=== PATIENT | female | born 1960 | race Caucasian/White ===

== ENCOUNTER → 2016-09-14 | Outpatient (CLI) | payer BC ==
--- NOTE | 2016-09-15 10:56 | MM ---
Reason for exam: screening (asymptomatic). Last mammogram was performed 1 year and 5 months ago. History: Patient has history of other cancer at age 27. Family history of premenopausal breast cancer in mother at age 31. Took hormonal contraceptives for 10 years beginning at age 20. Physical Findings: A clinical breast exam by your physician is recommended on an annual basis and results should be correlated with mammographic findings. MG Screening Mammo w CAD Bilateral CC and MLO view(s) were taken. Prior study comparison: April 25, 2015, bilateral MG screening mammo w CAD. March 14, 2014, bilateral MG screening mammo w CAD. There are scattered fibroglandular densities. Asymmetric breast tissue in right breast MLO posteriorly, 8cm from nipple at pectoralis level, 8mm with calcifications. ASSESSMENT: Incomplete: need additional imaging evaluation, BI-RAD 0 RECOMMENDATION: Special view mammogram of the right breast. If lesion persists on supplemental views, image directed ultrasound is recommended. [facility] will attempt to contact patient to return for supplemental views and ultrasound if indicated.
== END | disposition home or self-care (01) ==
LOC: RADMAMWWP 11:15
PROVIDERS: ATTEND Obstetrics & Gynecology
DX: Z12.31 Encounter for screening mammogram for malignant neoplasm of breast (principal); R92.2 Inconclusive mammogram; Z80.3 Family history of malignant neoplasm of breast

== ENCOUNTER → 2016-09-28 | Outpatient (CLI) | payer BC ==
--- NOTE | 2016-09-28 13:12 | MM ---
Reason for exam: additional evaluation requested from abnormal screening. Last mammogram was performed less than 1 month ago. History: Patient is postmenopausal and has history of other cancer at age 27. Family history of premenopausal breast cancer in mother at age 31. Took hormonal contraceptives for 10 years beginning at age 20. Taking estrogen beginning at age 56. Physical Findings: Nurse did not find any significant physical abnormalities on exam. MG Work Up Mamm w CAD RT ML, XCCL, spot compression MLO, and spot compression XCCL view(s) were taken of the right breast. Prior study comparison: September 14, 2016, bilateral MG screening mammo w CAD. April 25, 2015, bilateral MG screening mammo w CAD. Finding: There is a typically benign equal density (isodense), circumscribed oval mass in the upper outer quadrant, axillary tail position of the right breast with punctate calcifications. This is persistent on compression. These results were verbally communicated with the patient and result sheet given to the patient on 09/28/16. ASSESSMENT: Incomplete: need additional imaging evaluation, BI-RAD 0 RECOMMENDATION: Ultrasound of the right breast.
--- NOTE | 2016-09-28 13:14 | USB ---
Reason for exam: additional evaluation requested from abnormal screening. History: Patient is postmenopausal and has history of other cancer at age 27. Family history of premenopausal breast cancer in mother at age 31. Took hormonal contraceptives for 10 years beginning at age 20. Taking estrogen beginning at age 56. US Breast Workup Limited RT Right breast ultrasound demonstrates a 0.6 x 0.4 x 0.2cm oval, cystic lesion with calcification at 10 o'clock. These results were verbally communicated with the patient and result sheet given to the patient on 09/28/16. ASSESSMENT: Suspicious, BI-RAD 4 RECOMMENDATION: Surgical consultation and ultrasound core biopsy of the right breast. Called Dr. Perez with mammographic findings and has scheduled an appointment for the patient for 10/05/16 at 1:[address] Perez. PRELIMINARY REPORT CALLED AND FAXED TO DR. PEREZ ON 09/28/16 AT 300/TMP.
== END | disposition home or self-care (01) ==
LOC: RADMAMWWP 10:55
PROVIDERS: ATTEND Obstetrics & Gynecology
DX: R92.8 Other abnormal and inconclusive findings on diagnostic imaging of breast (principal)
CPT/HCPCS: 76642; G0206

== ENCOUNTER → 2016-10-19 | Day surgery (SDC) | payer BC ==
[~2016-10-19] MED LIST: BACITRACIN OINT 1 EACH PACKET TOPICAL ONE; LIDOCAINE 1% INJ 10MG/ML (20 ML MDV) ONE; LIDOCAINE 1%-EPI 1:100,000 20 ML VIAL ONE; SODIUM BICARB 4% 5 ML VIAL (0.48 MEQ/ML) ONE
--- NOTE | 2016-10-19 13:52 | USB ---
EXAMINATION TYPE: US biopsy breast VAD RT DATE OF EXAM: 10/19/2016 12:45 PM CLINICAL HISTORY: R92.8 Abnormal mammo. TECHNIQUE: Ultrasound guided core biopsy of right breast. COMPARISON: Previous ultrasound dated 09/28/2016. FINDINGS: The procedure of ultrasound guided core biopsy was explained to the patient. Benefits, alternatives, and risks were discussed. An informed consent was then obtained. The patient was placed in supine positioning for imaging and for the procedure. The overlying skin was prepped and draped in usual sterile fashion. Lidocaine buffered with bicarbonate was used as anesthetic into the skin and subcutaneous tissue up to area of concern in the right breast. A whit was made with surgical scalpel. Under ultrasound guidance, a 12-gauge vacuum assisted biopsy gun device was used to obtain 8 core samples. The lesion dissipated. Following this, a biopsy clip was left in lesion. The patient tolerated the procedure well without any immediate complication. The patient was kept in the radiology department for short stay after the procedure and then discharged home in stable condition. A two-view mammogram demonstrates the clip to be in the correct location and the lesion to have resolved. Residual calcifications were seen. Pathology is pending. IMPRESSION: Successful, uncomplicated ultrasound guided core biopsy of area of concern in the right breast, full pathology results to follow. Pathology Results: Benign BREAST, RIGHT, ULTRASOUND GUIDED CORE BIOPSY: FIBROCYSTIC CHANGE (STROMAL FIBROSIS, CYST FORMATION, ADENOSIS, DUCT HYPERPLASIA AND SCATTERED CALCIFICATIONS). 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 Recommendation Follow up ultrasound of the right breast in 6 months. VAIBHAV
--- NOTE | 2016-10-19 13:53 | MM ---
EXAMINATION TYPE: US biopsy breast VAD RT DATE OF EXAM: 10/19/2016 12:45 PM CLINICAL HISTORY: R92.8 Abnormal mammo. TECHNIQUE: Ultrasound guided core biopsy of right breast. COMPARISON: Previous ultrasound dated 09/28/2016. FINDINGS: The procedure of ultrasound guided core biopsy was explained to the patient. Benefits, alt ernatives, and risks were discussed. An informed consent was then obtained. The patient was placed in supine positioning for imaging and for the procedure. The overlying skin w as prepped and draped in usual sterile fashion. Lidocaine buffered with bicarbonate was used as anes thetic into the skin and subcutaneous tissue up to area of concern in the right breast. A whit was m marcos with surgical scalpel. Under ultrasound guidance, a 12-gauge vacuum assisted biopsy gun device was used to obtain 8 core saran ples. The lesion dissipated. Following this, a biopsy clip was left in lesion. The patient tolerated the procedure well without any immediate complication. The patient was kept in the radiology department for short stay after the procedure and then discharged home in stable condi tion. A two-view mammogram demonstrates the clip to be in the correct location and the lesion to have resol arun. Residual calcifications were seen. Pathology is pending. IMPRESSION: Successful, uncomplicated ultrasound guided core biopsy of area of concern in the right b reast, full pathology results to follow.
== END ==
LOC: RADUSWWP 11:42
PROVIDERS: ATTEND Surgery
DX: N60.11 Diffuse cystic mastopathy of right breast (principal); N60.21 Fibroadenosis of right breast; N60.91 Unspecified benign mammary dysplasia of right breast; R92.1 Mammographic calcification found on diagnostic imaging of breast; R92.8 Other abnormal and inconclusive findings on diagnostic imaging of breast
CPT/HCPCS: 88305; 19083; G0206; A4648; J2001

== ENCOUNTER → 2017-04-26 | Outpatient (CLI) | payer BC ==
--- NOTE | 2017-04-27 07:55 | USB ---
Reason for exam: follow-up at short interval from prior study. History: Patient is postmenopausal and has history of other cancer at age 27. Family history of premenopausal breast cancer in mother at age 31. Benign US biopsy breast VAD RT of the right breast, October 19, 2016. Took hormonal contraceptives for 10 years beginning at age 20. Taking estrogen beginning at age 56. Physical Findings: Nurse did not find any significant physical abnormalities on exam. US Breast RT Right breast ultrasound includes all four quadrants, the retroareolar region and axilla. Finding demonstrates a 0.3 x 0.3 x 0.1cm cystic lesion at 10 o'clock, previously biopsied and a 0.9 x 1.4 x 0.2cm cystic lesion at 4 o'clock. These results were verbally communicated with the patient and result sheet given to the patient on 04/26/17. ASSESSMENT: Probably benign, BI-RAD 3 RECOMMENDATION: Return to routine screening mammogram schedule for both breasts. Back on schedule for September 2017.
== END | disposition home or self-care (01) ==
LOC: RADUSWWP 14:05
PROVIDERS: ATTEND Surgery
DX: R92.8 Other abnormal and inconclusive findings on diagnostic imaging of breast (principal)

== ENCOUNTER → 2017-11-23 | Outpatient (CLI) | payer BC ==
--- NOTE | 2017-11-24 12:00 | MM ---
Reason for exam: screening (asymptomatic). Last mammogram was performed 1 year and 1 month ago. History: Patient is postmenopausal and has history of other cancer at age 27. Family history of premenopausal breast cancer in mother at age 31. Benign US biopsy breast VAD RT of the right breast, October 19, 2016. Took hormonal contraceptives for 10 years beginning at age 20. Taking estrogen beginning at age 56. Physical Findings: A clinical breast exam by your physician is recommended on an annual basis and results should be correlated with mammographic findings. MG Screening Mammo w CAD Bilateral CC and MLO view(s) were taken. XCCL view(s) were taken of the right breast. Prior study comparison: October 19, 2016, right breast MG diagnostic mammo RT wo CAD. September 28, 2016, right breast MG work up mamm w CAD RT. The breast tissue is heterogeneously dense. This may lower the sensitivity of mammography. There is a lower inner quadrant right brast mass smaller than on the exam on 2015. No suspicious abnormality. Right biopsy marker noted. ASSESSMENT: Benign, BI-RAD 2 RECOMMENDATION: Routine screening mammogram of both breasts in 1 year.
== END | disposition home or self-care (01) ==
LOC: RADMAMWWP 11:11
PROVIDERS: ATTEND Obstetrics & Gynecology
DX: Z12.31 Encounter for screening mammogram for malignant neoplasm of breast (principal)
CPT/HCPCS: 77067

== ENCOUNTER → 2019-02-24 | Outpatient (CLI) | payer BC ==
--- NOTE | 2019-02-28 10:06 | MM ---
Reason for exam: screening (asymptomatic). Last mammogram was performed 1 year and 3 months ago. History: Patient is postmenopausal and has history of other cancer at age 27. Family history of premenopausal breast cancer in mother at age 31. Benign US biopsy breast VAD RT of the right breast, October 19, 2016. Took hormonal contraceptives for 10 years beginning at age 20. Took estrogen for 2 months beginning at age 56. Physical Findings: A clinical breast exam by your physician is recommended on an annual basis and results should be correlated with mammographic findings. MG Screening Mammo w CAD Bilateral CC and MLO view(s) were taken. XCCL view(s) were taken of the right breast. Prior study comparison: November 23, 2017, bilateral MG screening mammo w CAD. October 19, 2016, right breast MG diagnostic mammo RT wo CAD. The breast tissue is heterogeneously dense. This may lower the sensitivity of mammography. There is a right lower inner quadrant posterior depth mass that is smaller than prior exams. Benign appearing bilateral calcifications. No suspicious abnormality. Right biopsy marker noted. No significant changes when compared with prior studies. ASSESSMENT: Benign, BI-RAD 2 RECOMMENDATION: Routine screening mammogram of both breasts in 1 year.
== END ==
LOC: RADMAMWWP 11:17
PROVIDERS: ATTEND Obstetrics & Gynecology
DX: Z12.31 Encounter for screening mammogram for malignant neoplasm of breast (principal); Z80.3 Family history of malignant neoplasm of breast
CPT/HCPCS: 77067

== ENCOUNTER → 2020-03-29 | Outpatient (CLI) | payer BC ==
--- NOTE | 2020-04-04 09:14 | MM ---
Reason for exam: clinical finding. Last mammogram was performed 1 year and 1 month ago. History: Patient is postmenopausal and has history of other cancer at age 27. Family history of premenopausal breast cancer in mother at age 31. Benign US biopsy breast VAD RT of the right breast, October 19, 2016. Took hormonal contraceptives for 10 years beginning at age 20. Took estrogen for 2 months beginning at age 56. Physical Findings: Nurse did not find any significant physical abnormalities on exam. MG 3D Diag Mammo W/Cad KELI Bilateral CC and MLO view(s) were taken. Prior study comparison: February 24, 2019, bilateral MG screening mammo w CAD. November 23, 2017, bilateral MG screening mammo w CAD. The breast tissue is heterogeneously dense. This may lower the sensitivity of mammography. Benign appearing bilateral calcifications. Previous mammotome biopsy in the right breast. These results were verbally communicated with the patient and result sheet given to the patient on 03/29/20. ASSESSMENT: Incomplete: need additional imaging evaluation, BI-RAD 0 RECOMMENDATION: Ultrasound of the right breast.
--- NOTE | 2020-04-04 09:18 | USB ---
Reason for exam: additional evaluation requested from abnormal screening. History: Patient is postmenopausal and has history of other cancer at age 27. Family history of premenopausal breast cancer in mother at age 31. Benign US biopsy breast VAD RT of the right breast, October 19, 2016. Took hormonal contraceptives for 10 years beginning at age 20. Took estrogen for 2 months beginning at age 56. US Breast RT Right complete breast ultrasound includes all four quadrants, the retroareolar region and axilla. Finding demonstrates a 0.7 x 0.4 x 0.7cm cystic lesion at 4 o'clock and a 0.4 x 0.3 x 0.5cm cystic cluster at 10 o'clock. Prominent but nonenlarged high right axillary node measuring 1.9 x 1.1 x 0.7cm with slight cortical thickening up to 2.7mm. Corresponds to the palpable site, 3 month follow up recommended. These results were verbally communicated with the patient and result sheet given to the patient on 03/29/20. ASSESSMENT: Probably benign, BI-RAD 3 RECOMMENDATION: Ultrasound of the right breast in 3 months.
== END | disposition home or self-care (01) ==
LOC: RADMAMWWP 13:24
PROVIDERS: ATTEND Obstetrics & Gynecology
DX: N63.31 Unspecified lump in axillary tail of the right breast (principal); Z80.3 Family history of malignant neoplasm of breast
CPT/HCPCS: 77062; 77066

== ENCOUNTER → 2020-06-27 | Outpatient (CLI) | payer BC ==
--- NOTE | 2020-07-02 10:13 | USB ---
Reason for exam: follow-up at short interval from prior study. History: Patient is postmenopausal and has history of other cancer at age 27. Family history of premenopausal breast cancer in mother at age 31. Benign US biopsy breast VAD RT of the right breast, October 19, 2016. Took hormonal contraceptives for 10 years beginning at age 20. Took estrogen for 2 months beginning at age 56. Physical Findings: Nurse did not find any significant physical abnormalities on exam. US Breast Axilla RT Right breast axilla ultrasound demonstrates a 1.5 x 0.7 x 0.7cm normal lymph node at the axilla. These results were verbally communicated with the patient and result sheet given to the patient on 06/27/20. ASSESSMENT: Benign, BI-RAD 2 RECOMMENDATION: Routine screening mammogram of both breasts in 9 months. Back on schedule for March 2021.
== END | disposition home or self-care (01) ==
LOC: RADUSWWP 14:11
PROVIDERS: ATTEND Obstetrics & Gynecology
DX: R92.8 Other abnormal and inconclusive findings on diagnostic imaging of breast (principal)

== ENCOUNTER → 2021-04-15 | Outpatient (CLI) | payer BC ==
--- NOTE | 2021-04-16 11:17 | MM ---
Reason for exam: screening (asymptomatic). Last mammogram was performed 1 year and 1 month ago. History: Patient is postmenopausal and has history of other cancer at age 27. Family history of premenopausal breast cancer in mother at age 31. Benign US biopsy breast VAD RT of the right breast, October 19, 2016. Took hormonal contraceptives for 10 years beginning at age 20. Took estrogen for 2 months beginning at age 56. Physical Findings: A clinical breast exam by your physician is recommended on an annual basis and results should be correlated with mammographic findings. MG Screening Mammo w CAD Bilateral CC and MLO view(s) were taken. Prior study comparison: March 29, 2020, bilateral MG 3d diag mammo w/cad KELI. February 24, 2019, bilateral MG screening mammo w CAD. November 23, 2017, bilateral MG screening mammo w CAD. The breast tissue is heterogeneously dense. This may lower the sensitivity of mammography. Finding: There is a 5 mm equal density (isodense), obscured oval mass located 4.5 cm from the nipple in the upper outer quadrant, middle position of the right breast. New finding since March 29, 2020, February 24, 2019, and November 23, 2017. ASSESSMENT: Incomplete: need additional imaging evaluation, BI-RAD 0 RECOMMENDATION: Special view mammogram of the right breast. If lesion persists on supplemental views, image directed ultrasound is recommended. [facility] will attempt to contact patient to return for supplemental views and ultrasound if indicated.
== END | disposition home or self-care (01) ==
LOC: RADMAMWWP 11:05
PROVIDERS: ATTEND Obstetrics & Gynecology
DX: Z12.31 Encounter for screening mammogram for malignant neoplasm of breast (principal); Z78.0 Asymptomatic menopausal state; Z79.3 Long term (current) use of hormonal contraceptives; Z80.3 Family history of malignant neoplasm of breast
CPT/HCPCS: 77067

== ENCOUNTER → 2021-04-29 | Outpatient (CLI) | payer BC ==
--- NOTE | 2021-04-29 11:46 | MM ---
Reason for exam: additional evaluation requested from abnormal screening. Last mammogram was performed less than 1 month ago. History: Patient is postmenopausal and has history of other cancer at age 27. Family history of premenopausal breast cancer in mother at age 31. Benign US biopsy breast VAD RT of the right breast, October 19, 2016. Took hormonal contraceptives for 10 years beginning at age 20. Took estrogen for 2 months beginning at age 56. Physical Findings: Nurse did not find any significant physical abnormalities on exam. MG Work Up Mamm w CAD RT Spot compression CC, spot compression MLO, and LM view(s) were taken of the right breast. Prior study comparison: April 15, 2021, bilateral MG screening mammo w CAD. March 29, 2020, bilateral MG 3d diag mammo w/cad KELI. There are scattered fibroglandular densities. Finding: There is a 6 mm equal density (isodense), obscured mass in the upper outer quadrant of the right breast. These results were verbally communicated with the patient and result sheet given to the patient on 04/29/21. ASSESSMENT: Incomplete: need additional imaging evaluation, BI-RAD 0 RECOMMENDATION: Ultrasound of the right breast.
--- NOTE | 2021-04-29 11:47 | USB ---
Reason for exam: additional evaluation requested from abnormal screening. History: Patient is postmenopausal and has history of other cancer at age 27. Family history of premenopausal breast cancer in mother at age 31. Benign US biopsy breast VAD RT of the right breast, October 19, 2016. Took hormonal contraceptives for 10 years beginning at age 20. Took estrogen for 2 months beginning at age 56. US Breast Workup Limited RT Right limited breast ultrasound including focal area of concern, retroareolar and axilla demonstrates a 0.5 x 0.3 x 0.7cm cystic cluster at 10 o'clock. These results were verbally communicated with the patient and result sheet given to the patient on 04/29/21. ASSESSMENT: Probably benign, BI-RAD 3 RECOMMENDATION: Follow-up diagnostic mammogram and ultrasound of the right breast in 6 months.
== END | disposition home or self-care (01) ==
LOC: RADMAMWWP 10:16
PROVIDERS: ATTEND Obstetrics & Gynecology
DX: N64.89 Other specified disorders of breast (principal); Z78.0 Asymptomatic menopausal state; Z80.3 Family history of malignant neoplasm of breast
CPT/HCPCS: 77065

== ENCOUNTER → 2021-11-21 | Outpatient (CLI) | payer BC ==
--- NOTE | 2021-11-26 10:21 | MM ---
Reason for exam: follow-up at short interval from prior study. Last mammogram was performed 7 months ago. History: Patient is postmenopausal and has history of other cancer at age 27. Family history of premenopausal breast cancer in mother at age 31. Benign US biopsy breast VAD RT of the right breast, October 19, 2016. Took hormonal contraceptives for 10 years beginning at age 20. Took estrogen for 2 months beginning at age 56. Physical Findings: A clinical breast exam by your physician is recommended on an annual basis and results should be correlated with mammographic findings. MG 3D Diag Mammo W/Cad RT CC, MLO, and XCCL view(s) were taken of the right breast. Prior study comparison: April 15, 2021, bilateral MG screening mammo w CAD. The breast tissue is heterogeneously dense. This may lower the sensitivity of mammography. Finding: There is a snowman shape 9 mm circumscribed lobulated mass in the upper outer quadrant, middle position of the right breast. Increase in size since April 15, 2021. ASSESSMENT: Incomplete: need additional imaging evaluation, BI-RAD 0 RECOMMENDATION: Ultrasound of the right breast.
--- NOTE | 2021-11-26 10:23 | USB ---
Reason for exam: follow-up at short interval from prior study. History: Patient is postmenopausal and has history of other cancer at age 27. Family history of premenopausal breast cancer in mother at age 31. Benign US biopsy breast VAD RT of the right breast, October 19, 2016. Took hormonal contraceptives for 10 years beginning at age 20. Took estrogen for 2 months beginning at age 56. Physical Findings: A clinical breast exam by your physician is recommended on an annual basis and results should be correlated with mammographic findings. US Breast Limited RT Right limited breast ultrasound including focal area of concern, retroareolar and axilla demonstrates a 0.6 x 0.4 x 0.5cm oval, cystic lesion at 10 o'clock and a 0.6 x 0.3 x 0.5cm oval, cystic lesion at 10 o'clock. Simple cysts, slightly increased in size from prior. ASSESSMENT: Benign, BI-RAD 2 RECOMMENDATION: Follow-up diagnostic mammogram of both breasts in 5 months. Back on schedule for April 2022.
== END | disposition home or self-care (01) ==
LOC: RADMAMWWP 12:50
PROVIDERS: ATTEND Obstetrics & Gynecology
DX: R92.8 Other abnormal and inconclusive findings on diagnostic imaging of breast (principal); Z78.0 Asymptomatic menopausal state; Z80.3 Family history of malignant neoplasm of breast
CPT/HCPCS: 77061; 77065

== ENCOUNTER → 2022-06-11 | Outpatient (CLI) | payer OTHER ==
--- NOTE | 2022-06-11 14:32 | MM ---
Reason for Exam: Follow-up at short interval from prior study. Last mammogram was performed 1 year(s) and 2 month(s) ago. Patient History: Menarche at age 13. First Full-Term at age 25. Postmenopausal. Patient has history of breast feeding. Other cancer, age 27. Estrogen for 2 months from age 56 until age 56. Hormonal Contraceptives, starting at age 20 for 10 years. 10/19/2016, Benign Core Biopsy on the right side. Mother had breast cancer, age 31. Sister had breast cancer, left, at or over age 50. Risk Values: Linsey 5 year model risk: 6.0%. NCI Lifetime model risk: 26.1%. Prior Study Comparison: 11/23/2017 Bilateral Screening Mammogram, [facility]. 02/24/2019 Bilateral Screening Mammogram, [facility]. 03/29/2020 Bilateral Diagnostic Mammogram, [facility]. 04/15/2021 Bilateral Screening Mammogram, [facility]. 04/29/2021 Right Diagnostic Mammogram, [facility]. 11/21/2021 Right Diagnostic Mammogram, [facility]. Tissue Density: There are scattered fibroglandular densities. Findings: Analyzed By CAD. No worrisome microcalcifications or architectural distortion within either breast. Biopsy clip demonstrated within the posterior right breast. Stable circumscribed mass within the upper outer right breast measuring 6 mm corresponding to a simple cyst on prior ultrasound. No new suspicious masses. Overall Assessment: Benign, BI-RAD 2 Management: Screening Mammogram of both breasts in 1 year. A clinical breast exam by your physician is recommended on an annual basis and results should be correlated with mammographic findings. This exam should not preclude additional follow-up of suspicious palpable abnormalities. Results were given to the patient verbally at the time of exam. Electronically signed and approved by: Stu Espinosa D.O.
== END | disposition home or self-care (01) ==
LOC: RADMAMWWP 14:05
PROVIDERS: ATTEND Obstetrics & Gynecology
DX: R92.8 Other abnormal and inconclusive findings on diagnostic imaging of breast (principal); Z78.0 Asymptomatic menopausal state; Z80.3 Family history of malignant neoplasm of breast
CPT/HCPCS: 77066

== ENCOUNTER → 2023-06-17 | Outpatient (CLI) | payer OTHER ==
--- NOTE | 2023-06-18 11:24 | MM ---
Reason for Exam: Screening (asymptomatic). Last screening mammogram was performed 12 month(s) ago. Patient History: Menarche at age 13. First Full-Term at age 25. Postmenopausal. Patient has history of breast feeding. Other cancer, age 27. Estrogen for 2 months from age 56 until age 56. Hormonal Contraceptives, starting at age 20 for 10 years. 10/19/2016, Benign Core Biopsy on the right side. Mother had breast cancer, age 31. Sister had breast cancer, left, at or over age 50. Risk Values: Linsey 5 year model risk: 6.2%. NCI Lifetime model risk: 25.4%. Prior Study Comparison: 11/23/2017 Bilateral Screening Mammogram, [facility]. 02/24/2019 Bilateral Screening Mammogram, [facility]. 03/29/2020 Bilateral Diagnostic Mammogram, [facility]. 04/15/2021 Bilateral Screening Mammogram, [facility]. 04/29/2021 Right Diagnostic Mammogram, [facility]. 11/21/2021 Right Diagnostic Mammogram, [facility]. 06/11/2022 Bilateral MG diagnostic mammo w CAD KELI, [facility]. Tissue Density: The breast tissue is heterogeneously dense. This may lower the sensitivity of mammography. Findings: Analyzed By CAD. There is no suspicious group of microcalcifications or new suspicious mass in either breast. Chronic nodularity redemonstrated. Overall Assessment: Benign, BI-RAD 2 Management: Screening Mammogram of both breasts in 1 year. . Patient should continue monthly self-breast exams. A clinical breast exam by your physician is recommended on an annual basis. This exam should not preclude additional follow-up of suspicious palpable abnormalities. Note on Linsey scores and lifetime risk: 1. A Linsey score greater than 3% is considered moderate risk. If this is the case, consider specialist referral to assess eligibility for a risk reducing agent. 2. If overall lifetime risk for the development of breast cancer is 20% or higher, the patient may qualify for future screening with alternating mammogram and breast MRI. Electronically signed and approved by: Tunde Pina M.D. Radiologis
== END | disposition home or self-care (01) ==
LOC: RADMAMWWP 10:55
PROVIDERS: ATTEND Obstetrics & Gynecology Obstetrics
DX: Z12.31 Encounter for screening mammogram for malignant neoplasm of breast (principal); Z78.0 Asymptomatic menopausal state; Z80.3 Family history of malignant neoplasm of breast
CPT/HCPCS: 77067

== ENCOUNTER → 2024-06-30 | Outpatient (CLI) | payer OTHER ==
--- NOTE | 2024-07-03 13:02 | MM ---
Reason for Exam: Screening (asymptomatic). Last screening mammogram was performed 12 month(s) ago. Patient History: Menarche at age 13. First Full-Term at age 25. Postmenopausal. Patient has history of breast feeding. Other cancer, age 27. Estrogen for 2 months from age 56 until age 56. Hormonal Contraceptives, starting at age 20 for 10 years. 10/19/2016, Benign Core Biopsy on the right side. Mother had breast cancer, age 31. Sister had breast cancer, left, at or over age 50. Risk Values: Linsey 5 year model risk: 6.4%. NCI Lifetime model risk: 24.7%. Prior Study Comparison: 11/21/2021 Right Diagnostic Mammogram, [facility]. 06/11/2022 Bilateral MG diagnostic mammo w CAD KELI, [facility]. 06/17/2023 Bilateral MG screening mammo w CAD, [facility]. Tissue Density: The breasts are almost entirely fatty. Findings: Analyzed By CAD. Right breast: There is no suspicious group of microcalcifications or new suspicious mass. Left breast: There is no suspicious group of microcalcifications or new suspicious mass. Overall Assessment: Negative, BI-RAD 1 Management: Screening Mammogram of both breasts in [address] [facility] will attempt to contact patient to return for supplemental views and ultrasound if indicated. Patient should continue monthly self-breast exams. A clinical breast exam by your physician is recommended on an annual basis. This exam should not preclude additional follow-up of suspicious palpable abnormalities. Note on Linsey scores and lifetime risk: 1. A Linsey score greater than 3% is considered moderate risk. If this is the case, consider specialist referral to assess eligibility for a risk reducing agent. 2. If overall lifetime risk for the development of breast cancer is 20% or higher, the patient may qualify for future screening with alternating mammogram and breast MRI. [facility], , 07/03/2024 12:58 PM. Electronically signed and approved by: Enmanuel Pina DO
== END | disposition home or self-care (01) ==
LOC: RADMAMWWP 13:45
PROVIDERS: ATTEND Obstetrics & Gynecology Obstetrics
CPT/HCPCS: 77067